=== PATIENT | female | born 1965 | race Caucasian/White ===

== ENCOUNTER 2025-02-23 10:58 | Outpatient (CLI) | payer OTHER | END 2025-02-23 10:59 | disposition home or self-care (01) | LOC: CSHMAMMO 10:58 | PROVIDERS: ATTEND Specialist | DX: C50.911 Malignant neoplasm of unspecified site of right female breast (principal) | CPT/HCPCS: 96372; A9697 ==

== ENCOUNTER 2025-02-23 11:49 | Outpatient (CLI) | payer OTHER ==
[2025-02-23 13:18] LABS: #Basophils 0.05 10x3/uL (0.0-0.2); #Eosinophils 0.12 10x3/uL (0.0-0.5); #Monocytes 0.41 10x3/uL (0.0-1.1); #Neutrophils 2.96 10x3/uL (1.5-8.4); %Basophils 1.0 % (0.0-2.0); %Eosinophils 2.4 % (0.0-6.0); %Lymphocytes 29.7 % (18.0-47.0); %Monocytes 8.1 % (0.0-10.0); %Neutrophils 58.6 % (40.0-75.0); Hematocrit 34.9 % (34.9-44.5); Hemoglobin 11.3 g/dL (12.0-15.5); Mean Corpuscular Hemoglobin 27.7 pg (27.0-33.0); Mean Corpuscular Volume 85.5 fL (81.6-98.3); Platelet Count 249 10x3/uL (150-450); Red Blood Cell (RBC) Count 4.08 10x6/uL (3.90-5.03); White Blood Cell (WBC) Count 5.05 10x3/uL (3.5-10.5)
[2025-02-23 13:57] LABS: Anion Gap 10 mmol/L (10-20); BUN (Urea Nitrogen) 8 mg/dL (9.8-20.1); Calc. Creatinine Clearance 0 mL/min (70-130); Calcium 8.6 mg/dL (7.8-10.44); Carbon Dioxide 23 mmol/L (22-29); Chloride 111 mmol/L (98-107); Glucose 94 mg/dL (70-105); Potassium 4.4 mmol/L (3.5-5.1); Sodium 140 mmol/L (136-145)
== END 2025-02-23 11:50 | disposition home or self-care (01) ==
LOC: CSHLAB 11:49
PROVIDERS: ATTEND Specialist
DX: Z01.812 Encounter for preprocedural laboratory examination (principal); C50.911 Malignant neoplasm of unspecified site of right female breast
CPT/HCPCS: 80048; 85025

== ENCOUNTER 2025-03-01 10:21 | Day surgery (SDC) | payer OTHER ==
[2025-02-23 12:33] VITALS: BMI 32.3
[2025-03-01] MEDS ORDERED: Ketorolac Tromethamine 30 MG (1 mL) VIAL ONE ×2 (10:58→11:54)
[2025-03-01] MEDS ORDERED: SUCCINYLCHOLINE/SOD CL,ISO/PF 200 MG/10 ML SYRINGE FS ONE (11:41)
[2025-03-01] MEDS ORDERED: PROPOFOL 20 ML ONE (11:41)
[2025-03-01] MEDS ORDERED: Lidocaine 1% (PF) 30 ML VIAL ONE (11:48)
[2025-03-01] MEDS ORDERED: Bupivacaine/Epinephrine 0.25% 30 ML VIAL ONE ×2 (12:02→12:15)
[2025-03-01] MEDS ORDERED: Scopolamine 1 mg/72 hour Patch ONE (12:17)
[2025-03-01] MEDS ORDERED: CEFAZOLIN 2 GM VIAL ONE (12:41)
[2025-03-01] MEDS ORDERED: PHENYLEPHRINE-NS 100 MCG/ML 10 ML SYRINGE ONE (13:04)
[2025-03-01] MEDS ORDERED: Phenylephrine 40 MG/NS 250 ML 250 ML ONE (14:00)
[2025-03-01] MEDS ORDERED: Sevoflurane 250 ML INH ANEST BOTTLE ONE (14:06)
[2025-03-01] MEDS ORDERED: HYDROmorphone 0.5 MG/0.5 ML SYRINGE ONE (15:01)
[2025-03-01] MEDS ORDERED: HYDROcodone/Acetaminophen 5/325 mg Tablet ONE (15:45)
== END 2025-03-01 16:33 | disposition home or self-care (01) ==
LOC: CSHSDC 10:21
PROVIDERS: ATTEND Specialist
PROC: 07B50ZZ Excision of Right Axillary Lymphatic, Open Approach (ICD-10-PCS; principal; 2025-03-01)
PROC: 0HBT0ZZ Excision of Right Breast, Open Approach (ICD-10-PCS; principal; 2025-03-01)
DX: C50.411 Malignant neoplasm of upper-outer quadrant of right female breast (principal); G62.9 Polyneuropathy, unspecified; Z87.891 Personal history of nicotine dependence; Z79.899 Other long term (current) drug therapy
CPT/HCPCS: 76098; 88307; 88342; C1713; J1100; J1171; J1885; J2003; J2250; J2371; J2704; J3010; Q9968